=== PATIENT | male | born 1975 | race Caucasian/White ===

== ENCOUNTER 2017-07-25 10:17 | Day surgery (SDC) | payer OTHER ==
[2017-07-21 14:54] VITALS: BMI 29.2
[2017-07-25] MEDS ORDERED: PROPOFOL 20 ML ONE (11:09)
[2017-07-25] MEDS ORDERED: MIDAZOLAM HCL 2 MG/2 ML SINGLE DOSE VIAL ONE (11:10)
[2017-07-25] MEDS ORDERED: LIDOCAINE HCL/PF 2% SDV 5ML VIAL ONE (11:11)
[2017-07-25] MEDS ORDERED: DEXAMETHASONE SOD PHOSPHATE 4 MG/1 ML VIAL ONE (11:11)
[2017-07-25] MEDS ORDERED: ONDANSETRON 4 MG/2 ML VIAL IVPUSH PRN (12:28)
[2017-07-25] MEDS ORDERED: oxyCODONE HCL 5 MG TABLET PO PRN (12:28)
[2017-07-25] MEDS ORDERED: LACTATED RINGERS SOLUTION 1,000 ML IV SCH (12:30)
--- NOTE | 2017-07-25 12:58 | OP ---
Operative Note - Note: Operative Date: 07/25/17 Pre-Operative Diagnosis: left ureteral stone with left hydronephrosis Operation: cystoscopy/left retrograde pyelogram/left ureteroscopic stone manipulation/left ureteral stent placement Findings: 6+ mm proximal left ureteral stone with high grade hydronephrosis Post-Operative Diagnosis: Same as Pre-op Surgeon: Cornelio Nguyen Anesthesia: General Drains & Tubes with Location: 6 fr/24 cm left ureteral stent
[2017-07-25 16:46] VITALS: BP 124/71; PULSE 83; TEMP 98
--- NOTE | 2017-07-25 20:12 | OP ---
DATE OF OPERATION: 07/25/2017 PREOPERATIVE DIAGNOSIS: Left ureteral stone with left hydronephrosis. POSTOPERATIVE DIAGNOSIS: Left ureteral stone with left hydronephrosis. PROCEDURE: Cystoscopy, left retrograde pyelogram, left uteroscopic stone manipulation, left ureteral stent placement. ATTENDING SURGEON: Cornelio Nguyen M.D. ANESTHESIA: General. DESCRIPTION OF PROCEDURE: The patient has a history of a proximal left ureteral stone with significant hydronephrosis. The patient has been managed with Percocet as an outpatient. The patient presents for stone basketing of a 5+ mm ureteral stone noted on CAT scan. The patient understands all risks and benefits. The patient was brought in the operating room, placed in supine position on operating room table. The patient is given anesthesia, preoperative antibiotics. At this point, the patient was placed in the dorsal lithotomy position, prepped and draped in the usual sterile manner. Cystoscopy was performed. No evidence of stones or neoplasm within the bladder is noted. A retrograde pyelogram is performed which shows an upper ureteral obstructing 6+ mm filling defect consistent with a stone. A wire is passed proximally. At this point, ureteroscopy is performed, and the ureteroscope is taken to the level of the stone. The stone is impacted and is manipulated into the kidney. At this point, due to the obstruction, there was bloody urine which obscured visualization for further treatment of the stone. It was decided that the patient would be best treated with a stent at this time and scheduled as an extracorporeal shock wave lithotripsy at a later date. The ureteroscope was removed. A 6 [place] 24 cm stent was then placed, utilizing the Seldinger technique under fluoroscopic visualization, no complications were noted. DISPOSITION: Patient to recovery room. Donnell [id number]
== END 2017-07-25 15:35 | disposition home or self-care (01) ==
LOC: JASU-SURG 10:17
PROVIDERS: ATTEND Urology
PROC: 0TC78ZZ Extirpation of Matter from Left Ureter, Via Natural or Artificial Opening Endoscopic (ICD-10-PCS; principal; 2017-07-25 13:00)
PROC: 0T778DZ Dilation of Left Ureter with Intraluminal Device, Via Natural or Artificial Opening Endoscopic (ICD-10-PCS; 2017-07-25 13:00)
DX: N20.1 Calculus of ureter (principal); N13.30 Unspecified hydronephrosis
CPT/HCPCS: 76000-TC-FY; 94760

== ENCOUNTER 2017-08-01 15:30 | Day surgery (SDC) | payer OTHER ==
[2017-07-29 16:02] VITALS: BMI 29.2
[2017-08-01] MEDS ORDERED: MIDAZOLAM HCL 2 MG/2 ML SINGLE DOSE VIAL ONE ×2 (18:05→18:12)
[2017-08-01] MEDS ORDERED: fentaNYL CITRATE 250 MCG/5 ML VIAL ONE (18:05)
--- NOTE | 2017-08-01 18:20 | OP ---
Operative Note - Note: Operative Date: 08/01/17 Pre-Operative Diagnosis: Left kidney stone Operation: Left ESWL Findings: 5 mm lover pole kidney stone left Surgeon: Cornelio Nguyen Anesthesia: Fractional
[2017-08-01 19:48] VITALS: BP 130/72; PULSE 80; TEMP 98.6
--- NOTE | 2017-08-02 01:12 | OP ---
DATE OF OPERATION: 08/01/2017 PREOPERATIVE DIAGNOSIS: Left renal stone. POSTOPERATIVE DIAGNOSIS: Left renal stone. PROCEDURE: Left extracorporeal shock wave lithotripsy. ATTENDING: Jj Martinez MD ANESTHESIA: Fractional. OPERATION: The patient was brought to the operating room and placed in the supine position on the operating room table. Ultrasonography and fluoroscopy were performed. A 5-6 mm left lower pole stone was identified. At this point, fractional anesthesia and preoperative antibiotics were given. Then, 3000 impulses at 20 Joules of power were administered to the stone. The extracorporeal shockwave lithotripsy fragmented the stone well. No complications were noted. The patient tolerated the procedure very well. JJ MARTINEZ M.D. [id number]
== END 2017-08-01 19:45 | disposition home or self-care (01) ==
LOC: JASU-SURG 15:30
PROVIDERS: ATTEND Urology
PROC: 0TF4XZZ Fragmentation in Left Kidney Pelvis, External Approach (ICD-10-PCS; principal; 2017-08-01 17:00)
DX: N20.0 Calculus of kidney (principal)

== ENCOUNTER 2018-06-19 12:24 | Day surgery (SDC) | payer OTHER ==
[2018-06-16 15:21] VITALS: BMI 29.2
[~2018-06-19 12:24] MED LIST: ONDANSETRON 4 MG/2 ML VIAL IVPUSH PRN; oxyCODONE HCL 5 MG TABLET PO PRN
[2018-06-19] MEDS ORDERED: MIDAZOLAM HCL 2 MG/2 ML SINGLE DOSE VIAL ONE (14:22)
--- NOTE | 2018-06-19 15:36 | OP ---
Operative Note - Note: Operative Date: 06/19/18 Pre-Operative Diagnosis: Right renal stone Operation: Righr ESWL Findings: 6 mm Right kidney lower pole renal stone Post-Operative Diagnosis: Same as Pre-op Surgeon: Cornelio Nguyen Anesthesia: Fractional Estimated Blood Loss (mls): 0 Operative Report Dictated: Yes
[2018-06-19 18:11] VITALS: BP 136/83; PULSE 77; TEMP 97.9
--- NOTE | 2018-07-26 09:37 | OP ---
DATE OF OPERATION: 06/19/2018 PREOPERATIVE DIAGNOSIS: Right renal stone. POSTOPERATIVE DIAGNOSIS: Right renal stone. PROCEDURE: Right extracorporeal shock wave lithotripsy. ATTENDING: Jj Martinez MD ANESTHESIA: Fractional. DESCRIPTION OF PROCEDURE: Patient was brought to the operating room, placed in supine position on the operating room table. Ultrasonography and fluoroscopy were performed. A 6-mm right lower pole renal stone was identified. Anesthesia and perioperative antibiotics were then administered. Shock wave lithotripsy was then performed. Excellent fragmentation of the stone was noted under real time ultrasonography and fluoroscopy. No complications were noted. DISPOSITION: Patient was to recovery room. JJ MARTINEZ M.D. [id number]
== END 2018-06-19 18:00 | disposition home or self-care (01) ==
LOC: JASU-SURG 12:24
PROVIDERS: ATTEND Urology
PROC: 0TF3XZZ Fragmentation in Right Kidney Pelvis, External Approach (ICD-10-PCS; principal; 2018-06-19 14:00)
DX: N20.0 Calculus of kidney (principal)

== ENCOUNTER 2020-11-13 23:53 | Emergency (ER) | payer OTHER ==
[2020-11-14 00:05] VITALS: BMI 28.8
[2020-11-14] MEDS ORDERED: METOCLOPRAMIDE HCL INJECTION 10 MG/2 ML VIAL IVPUSH ONE (01:41)
[2020-11-14] MEDS ORDERED: ACETAMINOPHEN 1000 MG/100 ML VIAL (NON FORMULARY) IVPB ONE (01:41)
[2020-11-14] MEDS ORDERED: SODIUM CHLORIDE 0.9% 500 ML INFUS.BAG IV ONE (01:43)
[2020-11-14] MEDS ORDERED: ACETAMINOPHEN INJECTION 100 ML IVPB ONE (01:44)
[2020-11-14] MEDS ORDERED: METOCLOPRAMIDE HCL INJECTION 10 MG/2 ML VIAL ONE (01:44)
[2020-11-14 03:30] LABS: BASO % 0.2 % (0-2.0); EOS % 0.7 % (0-4.5); HEMATOCRIT 38.9 % (35.4-49); HEMOGLOBIN 13.5 GM/dL (11.7-16.9); MCH 31.4 pg (25.7-33.7); MCHC 34.6 g/dl (32.0-35.9); MEAN CELL VOLUME 90.8 fl (80-96); MEAN PLT VOLUME 7.1 fl (7.5-11.1); MONO % 6.2 % (3.8-10.2); NEUT % 82.9 % (42.8-82.8); PLATELET COUNT 220 10^3/uL (134-434); RBC 4.28 M/mm3 (4.00-5.60); RDW 13.2 % (11.9-15.9); WHITE BLOOD COUNT 6.4 K/mm3 (4.0-10.0)
[2020-11-14 03:50] LABS: CALCIUM 8.6 mg/dL (8.5-10.1)
[2020-11-14 03:51] LABS: BLOOD UREA NITROGEN 13.6 mg/dL (7-18); MAGNESIUM 2.1 mg/dL (1.8-2.4)
[2020-11-14 03:54] LABS: CREATININE 0.9 mg/dL (0.55-1.3); PHOSPHOROUS 3.8 mg/dL (2.5-4.9)
[2020-11-14 03:55] LABS: BILIRUBIN,TOTAL 0.5 mg/dL (0.2-1)
[2020-11-14 03:56] LABS: TOT PROT 7.1 g/dl (6.4-8.2)
[2020-11-14 04:50] VITALS: BP 118/74; PULSE 83; TEMP 98.1
== END 2020-11-14 04:48 | disposition home or self-care (01) ==
LOC: JER 23:53
PROC: 3E033GC Introduction of Other Therapeutic Substance into Peripheral Vein, Percutaneous Approach (ICD-10-PCS; principal; 2020-11-13)
DX: R42 Dizziness and giddiness (principal); F10.929 Alcohol use, unspecified with intoxication, unspecified; R51.9 Headache, unspecified
CPT/HCPCS: 36415; 80053; 83735; 84100; 85025; 99284-25; J0131

== ENCOUNTER 2022-12-13 04:31 | Day surgery (SDC) | payer OTHER ==
[2022-12-08 14:00] VITALS: BMI 30.9
[2022-12-13] MEDS ORDERED: MIDAZOLAM HCL 2 MG/2 ML SINGLE DOSE VIAL ONE (14:40)
[2022-12-13] MEDS ORDERED: ONDANSETRON 4 MG/2 ML VIAL ONE (14:41)
[2022-12-13 15:27] VITALS: RESP 20
[2022-12-13 17:31] VITALS: BP 126/70; PULSE 68; TEMP 97
== END 2022-12-13 17:10 | disposition home or self-care (01) ==
LOC: JASU-SURG 04:31
PROVIDERS: ATTEND Urology
PROC: 0TF4XZZ Fragmentation in Left Kidney Pelvis, External Approach (ICD-10-PCS; principal; 2022-12-13 13:30)
DX: N20.0 Calculus of kidney (principal)